=== PATIENT | female | born 2000 | race Caucasian/White ===

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

== ENCOUNTER 2020-10-08 18:22 | Inpatient (IN) | payer OTHER ==
[2020-10-08] MEDS ORDERED: BUTORPHANOL TARTRATE 1 MG/ML VIAL IVPB ONE (19:09)
[2020-10-08] MEDS ORDERED: PROMETHAZINE HCL 25 MG/1 ML VIAL IVPUSH ONE (19:09)
[2020-10-08] MEDS ORDERED: AMPICILLIN - 2 GM in SODIUM CHLORIDE 100 ML IVPB ONE (19:12)
[2020-10-08] MEDS ORDERED: DEXTROSE 5%-LACTATED RINGERS 1,000 ML IV SCH (19:15)
[2020-10-08] MEDS ORDERED: AMPICILLIN SODIUM 2 GM VIAL ONE (19:16)
[2020-10-08] MEDS ORDERED: PROMETHAZINE HCL 25 MG/1 ML VIAL ONE (19:24)
[2020-10-08] MEDS ORDERED: BUTORPHANOL TARTRATE 2 MG/ML VIAL ONE (19:24)
[2020-10-08 20:05] VITALS: BMI 26.4
[2020-10-08 20:17] LABS: BASO % 0.2 % (0-2.0); EOS % 0.5 % (0-4.5); HEMATOCRIT 28.1 % (32.4-45.2); LYMPH % 35.4 % (8-40); MCHC 32.2 g/dl (32.0-36.0); MEAN CELL VOLUME 77.5 fl (80-96); MEAN PLT VOLUME 9.6 fl (7.5-11.1); MONO % 4.9 % (3.8-10.2); PLATELET COUNT 175 10^3/uL (134-434); RBC 3.62 M/mm3 (3.60-5.2); RDW 15.9 % (11.6-15.6); WHITE BLOOD COUNT 6.8 K/mm3 (4.0-10.0)
[2020-10-08 20:28] LABS: INR 0.95 (0.83-1.09); PROTHROMBIN TIME (PATIENT) 11.7 SEC (9.7-13.0)
[2020-10-08] MEDS ORDERED: LIDOCAINE HCL 1% PRESERVATIVE FREE - 30ML VIAL ONE (20:28)
[2020-10-08] MEDS ORDERED: OXYTOCIN 20 UNITS in 0.9% NS 20 UNIT/1,000 ML INFUS.BAG IV ONE ×2 (20:28→22:17)
[2020-10-08 20:30] LABS: ACTIVATED PTT 25.1 SECONDS (25.2-36.5); CALCIUM 8.9 mg/dL (8.5-10.1)
[2020-10-08 20:34] LABS: CREATININE 0.5 mg/dL (0.55-1.3)
[2020-10-08] MEDS ORDERED: BENZOCAINE 20% 57 GM BOTTLE TP PRN (21:13)
[2020-10-08] MEDS ORDERED: BISACODYL 10 MG SUPP.RECT RC PRN (21:13)
[2020-10-08] MEDS ORDERED: WITCH HAZEL 50% (TUCKS) 40 PAD/JAR PAD TP PRN (21:13)
[2020-10-08] MEDS ORDERED: METHYLERGONOVINE MALEATE 0.2 MG/1 ML AMP IM PRN (21:13)
[2020-10-08] MEDS ORDERED: BENZOCAINE 28 GM HEMORRHOIDAL OINTMENT TP PRN (21:13)
[2020-10-08] MEDS ORDERED: OXYTOCIN 20 UNITS in 0.9% NS 20 UNIT/1,000 ML INFUS.BAG IV SCH (21:15)
[2020-10-08 22:13] LABS: CORD HCO3 21.7 mmHg (20-29); CORD PCO2 50.9 mmHg (30-78); CORD pH 7.248 (7.14-7.44)
[2020-10-08] MEDS ORDERED: AMPICILLIN - 1 GM in SODIUM CHLORIDE 100 ML IVPB SCH (23:12)
[2020-10-09 08:12] LABS: BASO % 0.2 % (0-2.0); EOS % 0.5 % (0-4.5); HEMATOCRIT 25.4 % (32.4-45.2); HEMOGLOBIN 8.3 GM/dL (10.7-15.3); LYMPH % 21.6 % (8-40); MCH 25.4 pg (25.7-33.7); MCHC 32.6 g/dl (32.0-36.0); MEAN CELL VOLUME 77.8 fl (80-96); MEAN PLT VOLUME 9.3 fl (7.5-11.1); MONO % 6.1 % (3.8-10.2); NEUT % 71.6 % (42.8-82.8); PLATELET COUNT 152 10^3/uL (134-434); RBC 3.26 M/mm3 (3.60-5.2); WHITE BLOOD COUNT 9.9 K/mm3 (4.0-10.0)
[2020-10-09] MEDS: FERROUS SO4 325 MG TABLET (FP) PO SCH ×2 (09:19→17:05)
[2020-10-09] MEDS: PRENATAL VITAMINS W/ FOLIC ACID TABLET (FP) PO SCH (09:19)
[2020-10-09] MEDS: IBUPROFEN 600 MG TABLET (FP) PO PRN ×2 (09:19→17:05)
[2020-10-09] MEDS: ACETAMINOPHEN 325 MG TABLET (FP) PO PRN (09:20)
[2020-10-09] MEDS ORDERED: SENNOSIDES/DOCUSATE COMBO (SENNA PLUS) TABLET (UD) PO PRN (22:00)
[2020-10-10] MEDS: ACETAMINOPHEN 325 MG TABLET (FP) PO PRN (06:18)
[2020-10-10] MEDS: IBUPROFEN 600 MG TABLET (FP) PO PRN (06:18)
[2020-10-10] MEDS: FERROUS SO4 325 MG TABLET (FP) PO SCH (08:40)
[2020-10-10] MEDS: PRENATAL VITAMINS W/ FOLIC ACID TABLET (FP) PO SCH (10:07)
[2020-10-10 12:39] VITALS: BP 111/76; PULSE 83; TEMP 98.1
== END 2020-10-10 12:10 | disposition home or self-care (01) | DRG 560 ==
LOC: JLDR 18:22 → J3W 22:30
PROVIDERS: ADMIT Obstetrics & Gynecology; ATTEND Obstetrics & Gynecology
PROC: 10E0XZZ Delivery of Products of Conception, External Approach (ICD-10-PCS; principal; 2020-10-08)
DX: O42.02 Full-term premature rupture of membranes, onset of labor within 24 hours of rupture (principal); O99.824 Streptococcus B carrier state complicating childbirth; O99.03 Anemia complicating the puerperium; D50.9 Iron deficiency anemia, unspecified; Z3A.39 39 weeks gestation of pregnancy; Z37.0 Single live birth
CPT/HCPCS: 36415; 36600; 59409; 80048; 82803; 85025; 85610; 85730; 86780; 86850; 86900; 86901; C9803; U0003; U0005